=== PATIENT | female | born 1985 | race Caucasian/White ===

== ENCOUNTER 2017-09-08 12:38 | Emergency (ER) | payer BC, OTHER | END 2017-09-08 13:40 | disposition home or self-care (01) | LOC: SCSER 12:38 | DX: O99.512 Diseases of the respiratory system complicating pregnancy, second trimester (principal); J40 Bronchitis, not specified as acute or chronic; J06.9 Acute upper respiratory infection, unspecified; O99.612 Diseases of the digestive system complicating pregnancy, second trimester; K21.9 Gastro-esophageal reflux disease without esophagitis; I10 Essential (primary) hypertension; O99.342 Other mental disorders complicating pregnancy, second trimester; F31.9 Bipolar disorder, unspecified; Z3A.17 17 weeks gestation of pregnancy | CPT/HCPCS: 99283 ==

== ENCOUNTER 2017-09-09 16:45 | Emergency (ER) | payer BC, OTHER ==
[2017-09-09 17:47] LABS: #Eosinphils 0.3 thou/uL (0.0-0.7); #Lymphocytes 1.3 thou/uL (1.20-3.40); #Monocytes 0.6 thou/uL (0.11-0.59); #Neutrophils 6.2 thou/uL (1.40-6.50); %Basophils 0.5 % (0.0-1.0); %Eosinophils 3.2 % (0.0-10.0); %Monocytes 7.6 % (0.0-10.0); %Neutrophils 73.9 % (42.0-75.0); Hemoglobin 12.3 g/dL (12.0-16.0); Mean Corpuscular HGB CONC 34.3 g/dL (32.0-36.0); Mean Corpuscular Hemoglobin 30.8 pg (27.0-31.0); Mean Corpuscular Volume 89.7 fl (81.0-99.0); Mean Platelet Volume 6.3 fL (7.4-10.4); Platelet Count 350 thou/uL (130-400); RBC Distribution Width 12.1 % (11.5-14.5); Red Blood Cell (RBC) Count 4.01 mill/uL (4.20-5.40); White Blood Cell (WBC) Count 8.4 thou/uL (4.8-10.8)
[2017-09-09 18:00] LABS: ALT (SGPT) 7 U/L (8-55); AST (SGOT) 12 U/L (5-34); Albumin 3.9 g/dL (3.5-5.0); Alkaline Phosphatase 78 U/L (40-150); Anion Gap 12 mmol/L (10-20); BUN (Urea Nitrogen) 4 mg/dL (7.0-18.7); Bilirubin, Total 0.3 mg/dL (0.2-1.2); Calc. Creatinine Clearance 0 mL/min (70-130); Carbon Dioxide 21 mmol/L (22-29); Chloride 103 mmol/L (98-107); Estimated GFR-MDRD Greater than 90; Globulin 3.3 g/dL (2.4-3.5); Glucose 103 mg/dL (70-105); Potassium 3.5 mmol/L (3.5-5.1); Protein, Total 7.2 g/dL (6.0-8.3); Sodium 132 mmol/L (136-145)
[2017-09-09] MEDS ORDERED: Albuterol Sulfate 2.5 mg/0.5 ml Neb ONE (18:37)
[2017-09-09] MEDS ORDERED: Albuterol Sulfate 2.5 mg/3 ml Neb ONE ×5 (18:37→20:26)
[2017-09-09] MEDS ORDERED: methylPREDNISolone Sod Succ/PF 125 MG/2 ML VIAL ONE (20:24)
--- NOTE | 2017-09-09 21:01 | RAD ---
TWO VIEWS CHEST: HISTORY: Dyspnea. Bronchitis. COMPARISON: None. FINDINGS: Normal cardiac silhouette. The pulmonary vessels and hilum are normal. The costophrenic angles are clear. Minimal linear opacities in the lung bases. Adequate aeration of the upper lungs. No pneumo thorax or osseous abnormalities. IMPRESSION: Minimal linear opacities in the lung bases, which may represent infiltrate. Continued surveillance. POS: [facility]
== END 2017-09-09 21:41 | disposition home or self-care (01) ==
LOC: ERS 16:45
DX: O99.512 Diseases of the respiratory system complicating pregnancy, second trimester (principal); J40 Bronchitis, not specified as acute or chronic; O16.2 Unspecified maternal hypertension, second trimester; O99.342 Other mental disorders complicating pregnancy, second trimester; F31.9 Bipolar disorder, unspecified; O99.612 Diseases of the digestive system complicating pregnancy, second trimester; K21.9 Gastro-esophageal reflux disease without esophagitis; Z3A.17 17 weeks gestation of pregnancy; Z79.82 Long term (current) use of aspirin; Z79.899 Other long term (current) drug therapy
CPT/HCPCS: 71046; 80053; 85025; 96360; 96372; J2930; J7611

== ENCOUNTER 2017-09-23 09:29 | Emergency (ER) | payer BC, OTHER | END 2017-09-23 10:09 | disposition home or self-care (01) | LOC: SCSER 09:29 | DX: S22.32XA Fracture of one rib, left side, initial encounter for closed fracture (principal); K21.9 Gastro-esophageal reflux disease without esophagitis; F31.9 Bipolar disorder, unspecified; I10 Essential (primary) hypertension; X50.1XXA Overexertion from prolonged static or awkward postures, initial encounter | CPT/HCPCS: 99283 ==

== ENCOUNTER 2018-01-20 10:12 | Inpatient (IN) | payer BC, OTHER ==
[2018-01-20] MEDS ORDERED: Ondansetron HCl/PF 4 MG/2 ML Vial IVP PRN (10:14)
[2018-01-20] MEDS ORDERED: Zolpidem Tartrate 5 MG TAB PO PRN (10:14)
[2018-01-20] MEDS ORDERED: Promethazine HCl 25 MG/ML VIAL IM PRN (10:14)
[2018-01-20] MEDS ORDERED: Docusate 100 MG CAP PO PRN (10:14)
[2018-01-20 10:51] VITALS: BMI 36.8
[2018-01-20 11:02] VITALS: TEMP 98.6
[2018-01-20] MEDS: Lactated Ringer's 1,000 ML IV SCH ×2 (11:30→22:43)
--- NOTE | 2018-01-20 11:33 | ULT ---
BIOPHYSICAL PROFILE: History: Twin . High blood pressure. FINDINGS/IMPRESSION: The biophysical profile score of Twin A is 8/8. The biophysical profile score of Twin B is 8/8. POS: [facility]
[2018-01-20 11:42] LABS: Mean Corpuscular Hemoglobin 30.8 pg (27.0-31.0); Mean Corpuscular Volume 87.8 fL (78.0-98.0); Mean Platelet Volume 7.1 fL (7.4-10.4); Platelet Count 298 thou/uL (130-400); RBC Distribution Width 12.7 % (11.5-14.5); Red Blood Cell (RBC) Count 3.89 mill/uL (4.20-5.40)
[2018-01-20 12:00] LABS: ALT (SGPT) Less than 7 U/L (8-55); AST (SGOT) 9 U/L (5-34); Albumin 3.4 g/dL (3.5-5.0); Alkaline Phosphatase 219 U/L (40-150); Anion Gap 15 mmol/L (10-20); BUN (Urea Nitrogen) 6 mg/dL (7.0-18.7); Bilirubin, Total 0.4 mg/dL (0.2-1.2); Calc. Creatinine Clearance 177 mL/min (70-130); Calcium 9.4 mg/dL (7.8-10.44); Carbon Dioxide 18 mmol/L (22-29); Chloride 105 mmol/L (98-107); Estimated GFR-MDRD Greater than 90; Globulin 3.4 g/dL (2.4-3.5); Glucose 78 mg/dL (70-105); Protein, Total 6.8 g/dL (6.0-8.3); Sodium 134 mmol/L (136-145)
[2018-01-20] MEDS: Betamet Acet/Betamet Na Ph 30 MG/5 ML VIAL IM SCH (12:12)
[2018-01-20 12:28] LABS: HBSAg Index 0.18 S/CO (0-0.99); Hep B Surf Ag Non-Reactive S/CO (NonReactive)
--- NOTE | 2018-01-20 12:29 | ULT ---
BIOPHYSICAL PROFILE: HISTORY: Twin . Mother with high blood pressure. FINDINGS: Real-time imaging of the pelvis shows a twin . heart rate of Twin A is 145 b.p.m. and of Twin B 145 b.p.m. Amniotic fluid is adequate. biophysical profile of Twin A is 8 of a possible 8 with tone, breathing, move ment, and amniotic fluid also scoring 2. Twin B also has biophysical profile score of 8 of a p ossible 8. IMPRESSION: 1. biophysical profile scores of Twin A and Twin B of 8 with a possible 8. 2. Fetus A is cephalic on the maternal left side and appears to have a more anterior placenta. Twin B is cephalic more in the maternal right side with more of a fundal placenta. POS: [facility]
[2018-01-20 12:32] LABS: Syphilis Antibody Nonreactive (Nonreactive); Syphilis Antibody Index 0.03 S/CO (<1.00 Non-Reactive)
--- NOTE | 2018-01-20 22:36 | PDOC.LDHP ---
Labor and Delivery H&P Chief complaint: contractions, other (Increased BP in clinic today.) HPI: 32 y/o at 34 and 6/7 weeks today, presents for NSTs/clinical follow up today for high risk complicated by CHTN on Aldomet, Hx of Demise of Twins x2, Drug/Tobacco abuse, but found to have elevated BP (did not take Aldomet this morning). She is also 2-3 cm dilated/70%/-2 in clinic reporting 48 hours of increasing contractions. Last week, cervix was closed/20%/ -3. 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 Patient has previously lost twins at 27 weeks (reasons unknown, but abruption suspected). Patient regularly takes and passes urine drug screens, but has told me quite frankly that she has learned to cheat and fool the drug testing system in place by reverse catheterizing of donated clean urine. As such, it's difficult and likely pointless to do our own drug screening at this time. Rather , a presumed assumption she is likely positive is more pragmatic. I did question the patient about her recent and ongoing drug use, which she politely declined, but was unable to look me in the eye during questioning. Furthermore, her blood pressure during my gentle questions quickly dalton to SBP 170s, and I thus did not pursue further uncomfortable questioning. She did admit to only recent Tylenol 3 use. I have known this patient for many years, I have first hand seen her cope with side effects of Methamphetamine use, facial picking, and delusional complaining of bugs invading and crawling her skin, etc. Today, the patient seems better, but still I have my doubts about her complete openness and honesty regarding drug use during . Due date: 02/25/18 Grav: 5 Para: 3 Abnormal US findings: No Past Medical History: Chronic Hypertension, Tobacco/Drug Abuse Current medications: other (Aldomet 500mg BID) Previous surgical history: none Allergies/Adverse Reactions: Allergies Allergy/AdvReac Type Severity Reaction Status Date / Time No Known Allergies Allergy Verified 01/20/18 10:50 Social history: tobacco use, drug use - Physical Exam Vital signs reviewed and normal: yes General: NAD Heart: RRR Lungs: nonlabored breathing Abdomen: NTTP Extremeties: trace edema FHT: category 1 - Vaginal Exam cm dilated: 2 Effacement: 75% Station: -2 - Assessment L&D Assessment: labor - Plan Plan: admit to L&D, other (BMZ course, CMP, further evaluation for Cervical change/PTL.)
[2018-01-21] MEDS: Lactated Ringer's 1,000 ML IV SCH (03:08)
[2018-01-21] MEDS: Betamet Acet/Betamet Na Ph 30 MG/5 ML VIAL IM SCH (12:17)
[2018-01-21 20:10] VITALS: BP 158/95
--- NOTE | 2018-01-21 20:20 | PDOC.LDPN ---
Labor & Delivery Progress Note - Subjective Subjective: comfortable - Objective Vital signs reviewed and normal: yes General: NAD, resting Uterine fundus: non tender Dilation: 2 Effacement: 75% Station: -2 FHT: category 1 (Patient is being discharged to home after 2 doses of BMZ. BPs improved with modified bedrest here. Labor and kick count precautions rviewed in detail again today. F/U in clini within 7 days. Delivery is expected at or around 37 weeks if patient continues to do well.)
== END 2018-01-21 20:40 | disposition home health service (06) | DRG 833 ==
LOC: L&D 10:12
PROVIDERS: ADMIT Obstetrics & Gynecology; ATTEND Obstetrics & Gynecology
DX: O60.03 Preterm labor without delivery, third trimester (principal); Z3A.34 34 weeks gestation of pregnancy; O30.003 Twin pregnancy, unspecified number of placenta and unspecified number of amniotic sacs, third trimester
CPT/HCPCS: 36415; 76819; 80053; 85027; 86780; 86850; 86870; 86900; 86901; 86922; 87340; J0702

== ENCOUNTER 2018-02-03 19:10 | Inpatient (IN) | payer BC, OTHER ==
[~2018-02-03 19:10] MED LIST: Glycopyrrolate 0.2 MG/ML 5 ML SYRINGE ONE; PHENYLEPHRINE-NS 100 MCG/ML 10 ML SYRINGE ONE; PROPOFOL 200 MG/20 ML VIAL ONE; Succinylcholine Chloride 20 MG/ML 10 ml SYRINGE FS ONE; ePHEDrine/0.9% NaCl/PF SYRINGE 50 mg/10 ml ONE
[2018-02-03 19:20] VITALS: BMI 35.0
[2018-02-03] MEDS ORDERED: Butorphanol Tartrate 1 MG/ML VIAL SLOW IVP PRN (20:43)
[2018-02-03] MEDS ORDERED: Lidocaine 1% (PF) 30 ML VIAL SC PRN (20:43)
[2018-02-03] MEDS ORDERED: NS / Oxytocin 40 units/1000ml 1,000 ML IV PRN (20:43)
[2018-02-03] MEDS ORDERED: Zolpidem Tartrate 5 MG TAB PO PRN ×2 (20:43→22:15)
[2018-02-03] MEDS ORDERED: Promethazine HCl 25 MG/ML VIAL IM PRN ×3 (20:43→22:33)
[2018-02-03] MEDS ORDERED: Ondansetron PF 4 MG/2 ML Vial IVP PRN ×3 (20:43→22:33)
--- NOTE | 2018-02-03 20:54 | PDOC.LDHP ---
Labor and Delivery H&P Chief complaint: other (Elevated Blood Pressures, GHTN, Hx of Drug/Tobacco Abuse including Heroin and Methamphetamines, Di/Di Twins) Current gestational age (weeks): 36 Grav: 5 Para: 3 Current complications: gestational hypertension, di/di twins Abnormal US findings: No Current medications: none Allergies/Adverse Reactions: Allergies Allergy/AdvReac Type Severity Reaction Status Date / Time No Known Allergies Allergy Verified 02/03/18 19:19 - Physical Exam Vital signs reviewed and normal: yes General: NAD, resting, breathing through contractions Heart: RRR Lungs: nonlabored breathing Abdomen: NTTP Extremeties: no edema FHT: category 1 - Vaginal Exam cm dilated: 4 (80%, Posterior) Station: -1 - Assessment L&D Assessment: labor Elevated BP at home, Irregular CTXs reported - Plan Plan: admit to L&D, labor augmentation if indicated
[2018-02-03] MEDS ORDERED: NS w/ Oxytocin 10 units 500 ML IV SCH ×2 (21:00)
[2018-02-03] MEDS ORDERED: Penicillin G Potassium 5 MILL.UNITS in Sodium Chloride 0.9% 100 ML IVPB SCH (21:00)
[2018-02-03] MEDS ORDERED: CEFAZOLIN 2 GM/50 ML BAG ONE (21:11)
[2018-02-03 21:14] LABS: Hemoglobin 11.8 g/dL (12.0-16.0); Mean Corpuscular HGB CONC 34.4 g/dL (32.0-36.0); Mean Corpuscular Hemoglobin 30.1 pg (27.0-31.0); Mean Corpuscular Volume 87.4 fL (78.0-98.0); Mean Platelet Volume 7.2 fL (7.4-10.4); Platelet Count 283 thou/uL (130-400); RBC Distribution Width 12.8 % (11.5-14.5); Red Blood Cell (RBC) Count 3.92 mill/uL (4.20-5.40); White Blood Cell (WBC) Count 8.8 thou/uL (4.8-10.8)
[2018-02-03] MEDS ORDERED: Succinylcholine Chloride 20 MG/ML 10 ml SYRINGE FS ONE (21:16)
[2018-02-03] MEDS ORDERED: PROPOFOL 20 ML ONE (21:16)
[2018-02-03] MEDS ORDERED: Lidocaine 2% PF Inj 2 ML VIAL ONE (21:16)
[2018-02-03] MEDS ORDERED: Oxytocin 10 UNITS/ML VIAL ONE (21:16)
[2018-02-03] MEDS ORDERED: PHENYLEPHRINE-NS 100 MCG/ML 10 ML SYRINGE ONE (21:16)
[2018-02-03] MEDS ORDERED: ePHEDrine/0.9% NaCl/PF SYRINGE 50 mg/10 ml ONE (21:16)
[2018-02-03] MEDS ORDERED: Ondansetron PF 4 MG/2 ML Vial ONE (21:16)
[2018-02-03] MEDS ORDERED: Lidocaine 2% PF 5 ML VIAL ONE (21:17)
[2018-02-03] MEDS ORDERED: Fentanyl 100 MCG/2 ML VIAL ONE ×2 (21:22→22:26)
[2018-02-03] MEDS ORDERED: Rocuronium Bromide 50 MG/5 ML VIAL ONE (21:47)
[2018-02-03] MEDS ORDERED: Midazolam HCl 2 mg/2 ml Vial ONE (21:48)
[2018-02-03 21:56] LABS: Syphilis Antibody Nonreactive (Nonreactive); Syphilis Antibody Index 0.04 S/CO (<1.00 Non-Reactive)
[2018-02-03] MEDS ORDERED: HYDROmorphone 2 MG/ML VIAL SLOW IVP PRN (22:15)
[2018-02-03] MEDS ORDERED: L&D-Morphine 4 MG/ML VIAL SLOW IVP PRN (22:15)
[2018-02-03] MEDS ORDERED: Meperidine HCl/PF 25 MG/ML VIAL SLOW IVP PRN (22:15)
[2018-02-03] MEDS ORDERED: Ondansetron HCl/PF 4 MG/2 ML Vial IVP PRN (22:15)
[2018-02-03] MEDS ORDERED: Morphine CADD 1 MG/ML CADD IVPB PRN (22:15)
[2018-02-03] MEDS ORDERED: diphenhydrAMINE 25 MG CAP PO PRN (22:15)
[2018-02-03] MEDS ORDERED: Communication Order-Pharmacy FS SCH (22:15)
[2018-02-03] MEDS ORDERED: Ketorolac Tromethamine 30 MG/ML VIAL IVP SCH (22:15)
[2018-02-03] MEDS ORDERED: diphenhydrAMINE 50 MG/ML VIAL IM PRN (22:15)
[2018-02-03] MEDS ORDERED: Naloxone HCl 0.4 mg/ml Vial IV PRN (22:15)
[2018-02-03] MEDS ORDERED: diphenhydrAMINE 50 MG/ML VIAL IVP PRN (22:15)
[2018-02-03] MEDS ORDERED: Glycopyrrolate 0.2 MG/ML 5 ML SYRINGE ONE (22:22)
[2018-02-03] MEDS ORDERED: Bisacodyl 10 MG SUPP PR PRN (22:33)
[2018-02-03] MEDS ORDERED: Lanolin Ointment 7 GM TUBE TOP PRN (22:33)
[2018-02-03] MEDS ORDERED: Misoprostol 200 MCG TAB PR PRN (22:33)
[2018-02-03] MEDS ORDERED: NS / Oxytocin 40 units/1000ml 1,000 ML IV SCH (22:45)
[2018-02-03] MEDS ORDERED: Morphine 4 MG/ML VIAL SLOW IVP PRN (22:58)
[2018-02-03 23:08] LABS: Amphetamine Detected (NotDetected); Barbiturates Screen Not Detected (NotDetected); Benzodiazepine Screen Detected (NotDetected); Cocaine Metabolite Screen Not Detected (NotDetected); Medtox Control Line Valid? VALID (VALID); Medtox Reader # READER 1; Methadone Not Detected (NotDetected); Methamphetamine Not Detected (NotDetected); Opiate Screen Not Detected (NotDetected); Oxycodone Screen Not Detected (NotDetected); Phencyclidine (PCP) Not Detected (NotDetected); THC/Cannabinoid Screen Not Detected (NotDetected); Tricyclic Screen Not Detected (NotDetected)
[2018-02-03] MEDS ORDERED: Morphine 4 MG/ML VIAL ONE (23:09)
[2018-02-03] MEDS: Morphine 10 MG/ML VIAL ONE ×2 (23:13→23:29)
[2018-02-04 00:30] LABS: HBSAg Index 0.22 S/CO (0-0.99); Hep B Surf Ag Non-Reactive S/CO (NonReactive)
[2018-02-04] MEDS: Morphine 10 MG/ML VIAL ONE ×2 (00:51→01:53)
[2018-02-04] MEDS ORDERED: Penicillin G 2.5 MILL.units 2.5 MILL.UNITS in Premix Bag 1 BAG IVPB SCH (01:00)
[2018-02-04] MEDS ORDERED: Ketorolac Tromethamine 30 MG/ML VIAL ONE (01:48)
[2018-02-04] MEDS: Ketorolac Tromethamine 30 MG/ML VIAL IVP PRN ×2 (01:52→09:41)
[2018-02-04] MEDS ORDERED: Morphine 4 MG/ML VIAL ONE (06:30)
--- NOTE | 2018-02-04 06:47 | OP ---
DATE OF SERVICE: 02/03/2018 PRIMARY OB: Dr. Mike Reis Ms. Aaliyah Rai underwent a primary for twin gestation and nonreassuring heart to salud of baby A. For complete details, please refer to the dictated note of Dr. Mike Reis, the prim shukri surgeon. I served as housekeeper and laundry assistant.
[2018-02-04 06:52] LABS: Hemoglobin 10.6 g/dL (12.0-16.0); Mean Corpuscular HGB CONC 34.3 g/dL (32.0-36.0); Mean Corpuscular Hemoglobin 30.5 pg (27.0-31.0); Mean Corpuscular Volume 88.9 fL (78.0-98.0); Mean Platelet Volume 7.1 fL (7.4-10.4); Platelet Count 261 thou/uL (130-400); RBC Distribution Width 12.7 % (11.5-14.5); Red Blood Cell (RBC) Count 3.46 mill/uL (4.20-5.40); White Blood Cell (WBC) Count 11.7 thou/uL (4.8-10.8)
[2018-02-04] MEDS ORDERED: Morphine 4 MG/ML VIAL SLOW IVP PRN (07:46)
[2018-02-04] MEDS ORDERED: Varicella virus, LIVE 0.5 ML VIAL SC ONE (09:00)
[2018-02-04] MEDS ORDERED: Measles/Mumps/Rubella 10 MCG/0.5 ML VIAL SC ONE (09:00)
[2018-02-04] MEDS ORDERED: Adacel (T-DAP) 0.5 ML VIAL IM ONE (09:00)
--- NOTE | 2018-02-04 09:03 | RAD ---
PORTABLE CHEST ONE VIEW: Date: 02-04-18 Time: 5:19 a.m. History: Desaturation, difficulty breathing. FINDINGS/IMPRESSION: The heart size is normal, the lungs are expanded without lobar consolidation, pneumothoraces or pleur al effusions. Mild prominence of pulmonary vascularity is noted. POS: [facility]
[2018-02-04] MEDS: Docusate Calcium (SURFAK) 240 MG CAP PO SCH ×2 (11:59→21:06)
[2018-02-04 13:55] LABS: Ref Lab Test Ordered CONF UR DRUG; Reference Lab Name LABCORP
[2018-02-04] MEDS: HYDROcodone/Acetaminophen 5/325 mg Tablet PO PRN ×2 (14:06→21:06)
[2018-02-04] MEDS: Simethicone Chewable 80 MG TAB PO PRN ×2 (14:06→21:06)
--- NOTE | 2018-02-04 14:57 | PDOC.PP ---
Post Progress Note Post Day #: 1 PO intake tolerated: yes Flatus: yes Ambulation: yes Vital Signs (12 hours) Temp Pulse Resp BP Pulse Ox 02/04/18 12:15 98.3 F 83 20 130/73 95 02/04/18 08:00 94 L 02/04/18 04:00 93 L Weight Weight 224 lb - Physical Examination General: NAD Cardiovascular: no m/r/g, RRR Respiratory: clear to auscultation bilaterally, non-labored breathing Abdominal: + bowel sounds, lochia, no distention, appropriately TTP Extremities: negative homans (B) Skin: CS incision dry & intact, no rash Neurological: no gross focal deficits Psychiatric: A&Ox3, normal affect Result Diagrams: 02/04/18 06:13 Additional Labs: Post Labs Blood Type O NEGATIVE 02/03/18 20:55 Hep Bs Antigen Non-Reactive S/CO (NonReactive) 02/03/18 20:55
[2018-02-04] MEDS: Ibuprofen 800 MG TAB PO SCH (17:39)
[2018-02-05] MEDS: Ibuprofen 800 MG TAB PO SCH ×3 (02:00→18:39)
[2018-02-05] MEDS: HYDROcodone/Acetaminophen 5/325 mg Tablet PO PRN ×4 (02:01→18:39)
[2018-02-05] MEDS: Docusate Calcium (SURFAK) 240 MG CAP PO SCH ×2 (07:58→21:16)
--- NOTE | 2018-02-05 13:58 | OP ---
DATE OF PROCEDURE: 02/03/2018. PREOPERATIVE DIAGNOSES: Intrauterine at 36 weeks and 6 days with diamniotic dichorionic tw ins for recurrent bradycardic episodes of twin A. POSTOPERATIVE DIAGNOSES: Intrauterine at 36 weeks and 6 days with diamniotic dichorionic t wins for recurrent bradycardic episodes of twin A. PROCEDURE PERFORMED: Primary low transverse section. FINDINGS: Baby A was a viable male infant weighing 2455 grams or 5 pounds 7 ounces with Apgars of 6, and 8 and 9 at 10 minutes. Baby B was a viable female infant weighing 2990 grams or 6 pounds 9 ounc es, Apgars of 5 and 6 and 8. QUANTITATIVE BLOOD LOSS: 955 grams. COMPLICATIONS: Per Anesthesia. The patient encountered some cardiovascular difficulties involving a short arrhythmia episode followed by some lower than expected oxygen saturations. The patient was m onitored carefully postoperatively and kept on oxygen for a prolonged period of time in the recovery area and appeared to make a slow and complete recovery. DETAILS OF THE PROCEDURE: The patient was consented and taken back to the operating room where spina l anesthesia was found to be adequate. She was then prepped and draped in the normal sterile fashion . A time out was performed by the entire operative team. The incision was then marked with a markin g pen tested using sharp pickups. An incision was then made with a scalpel. The incision was janet d through the adipose tissue down to the underlying rectus fascia using both sharp dissection as well as cautery. Once the fascia was identified, it was incised in the midline and then the fascial inci evangelista was carried through in both lateral directions using sharp as well as cautery dissection techniq ues. Next, the superior aspect of the rectus fascia was grasped with 2 Marky clamps which was tente d up and the rectus muscles were dissected off using blunt dissection as well as cautery dissection. Similarly, the inferior aspect of the fascial incision was grasped with 2 Marky clamps, tented up a nd the rectus muscles were dissected off bluntly as well as sharply. Next, the rectus muscles were s eparated in the midline and the peritoneum identified. The peritoneum was then carefully grasped wit h two hemostats and entered sharply. The peritoneal incision was extended superiorly and inferiorly and bladder blade was placed in the lower abdomen. At this point, the uterus was identified and the bladder flap was then developed using pickups with teeth as well as Metzenbaum scissors in both later al directions. The bladder flap was then dissected downwards using the novelty printing machine operator's finger as well as Metzenbaum scissors. The bladder blade was replaced. The lower uterine segment was then identified and entered sharply using a clean scalpel. The uterine incision was then dissected downwards until t hin layer of muscle remained and this was entered bluntly using a hemostat to avoid any injury to the baby. The uterine incision was then stretched using two fingers in both lateral directions. An amniotomy was performed artificially using a hemostat and the baby was delivered using fundal pres sure in a gentle fashion. Once out, the baby's mouth and nose were bulb suctioned, cord clamped and cut, and the baby was handed to waiting attendants. Next, the uterus was exteriorized, cleared of al l clots and debris and the uterine incision was repaired with #1 Monocryl in a running locking fashio n. A second suture of the same type was used to obtain complete hemostasis at the uterine incision. The bladder flap was reapproximated using 3-0 Monocryl. Next, patient's left and right adnexa were inspected and appeared to be within normal limits. The posterior cul-de-sac was blotted dry and hemo stasis assured. One more look at the uterine incision demonstrated hemostasis. Next, the uterus was replaced back within the abdomen. The peritoneum was reapproximated using 2-0 Monocryl without diff iculty. The rectus muscles were then allowed to come back together and 0 chromic was used to aid in reapproximation of the muscle as necessary. The rectus fascia was then reapproximated in a running f ashion using 0 Vicryl suture. The adipose tissue was then examined and appeared to be well approxima jessica without any obvious separations. Finally, the skin was reapproximated with 3-0 Monocryl on a Thien th needle without difficulty and Dermabond adhesive was applied to the skin. Once the glue was dry, the drapes were removed and the patient was transferred to an ambulatory bed where she was taken to [facility] awake and in stable condition. Sponge, lap, and needle counts were correct x3. Baby A was the male fetus. He was born in a vertex presentation without difficulties. Baby B was th e female infant born also in a vertex presentation with a couple of body cords noted around the lower extremities that were loose. No abnormality of the cords or placentas were noted. No specific nuch al cord was noted. There was no explanation for the nonreassuring heart tones seen by baby A p rior to delivery.
[2018-02-06] MEDS: Ibuprofen 800 MG TAB PO SCH ×4 (02:55→17:25)
[2018-02-06] MEDS: HYDROcodone/Acetaminophen 5/325 mg Tablet PO PRN ×4 (06:06→21:38)
[2018-02-06] MEDS: Simethicone Chewable 80 MG TAB PO PRN ×2 (06:08→22:42)
[2018-02-06] MEDS: Docusate Calcium (SURFAK) 240 MG CAP PO SCH ×2 (08:16→21:37)
[2018-02-07] MEDS: Ibuprofen 800 MG TAB PO SCH ×2 (02:17→10:31)
[2018-02-07] MEDS ORDERED: Ibuprofen 800 MG TAB PO SCH (06:00)
[2018-02-07] MEDS: HYDROcodone/Acetaminophen 5/325 mg Tablet PO PRN ×2 (06:45→10:32)
--- NOTE | 2018-02-07 07:41 | PRG ---
DATE OF SERVICE: 02/06/2018 HISTORY OF PRESENT ILLNESS: The patient is a 32-year-old female who underwent a primary fo r a twin gestation for nonreassuring heart tones. The patient reports she is tolerat ing p.o., voiding on her own, having decreased lochia and good pain control. PHYSICAL EXAMINATION: VITAL SIGNS: Blood pressure 127/82, temperature 98.1, pulse of 98, respiratory rate of 20, satting 9 8% on room air. GENERAL: She appears to be in no acute distress. She is alert and oriented, cooperative and pleasan t to interact with. HEENT: Head is normocephalic, atraumatic. ABDOMEN: Fundus is firm. Incision is clean, dry, and intact. EXTREMITIES: Nontender, nonedematous. ASSESSMENT AND PLAN: The patient is postop day #2, status post a primary for twin gestatio n for nonreassuring heart tones. The patient is recovering well and we will continue inhouse p ostoperative care.
[2018-02-07] MEDS: Docusate Calcium (SURFAK) 240 MG CAP PO SCH (08:05)
[2018-02-07] MEDS: Simethicone Chewable 80 MG TAB PO PRN (08:05)
[2018-02-07 09:51] VITALS: BP 135/84; TEMP 98.6
== END 2018-02-07 12:45 | disposition home or self-care (01) | DRG 788 ==
LOC: L&D/OP 19:10 → L&D 20:01 → 3SW 02-04 13:34
PROVIDERS: ADMIT Obstetrics & Gynecology; ATTEND Obstetrics & Gynecology
PROC: 10D00Z1 Extraction of Products of Conception, Low, Open Approach (ICD-10-PCS; principal; 2018-02-03)
DX: O60.14X0 Preterm labor third trimester with preterm delivery third trimester, not applicable or unspecified (principal); Z3A.36 36 weeks gestation of pregnancy; O30.043 Twin pregnancy, dichorionic/diamniotic, third trimester; O76 Abnormality in fetal heart rate and rhythm complicating labor and delivery; Z37.2 Twins, both liveborn; O36.8331 Maternal care for abnormalities of the fetal heart rate or rhythm, third trimester, fetus 1; O13.4 Gestational [pregnancy-induced] hypertension without significant proteinuria, complicating childbirth; O99.344 Other mental disorders complicating childbirth; F32.9 Major depressive disorder, single episode, unspecified
CPT/HCPCS: 36415; 51702; 71045; 80306; 85027; 85461; 86780; 86850; 86900; 86901; 87340; 88307; 90384; 96372; 99285; J1885; J2001; J2250; J2270; J2405; J2590; J2704; J3010

== ENCOUNTER 2024-05-21 13:34 | Outpatient (CLI) | payer OTHER | END 2024-05-21 13:35 | disposition home or self-care (01) | LOC: BICRAD 13:34 | PROVIDERS: ATTEND Nurse Practitioner Family | DX: L03.116 Cellulitis of left lower limb (principal) ==